=== PATIENT | female | born 2000 | race Caucasian/White ===

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

== ENCOUNTER 2019-04-09 14:25 | Emergency (ER) | payer OTHER ==
[2019-04-09] MEDS ORDERED: Acetaminophen 500 MG TAB ONE (15:35)
[2019-04-09 16:00] LABS: Pregnancy Test - Urine (BHCG) Negative (Negative); Pregu Control Background? CLEAR/WHITE (CLR/WHITE); Pregu Control Bar Appear? YES (CONTROL BAR); Specific Gravity 1.011 (1.002-1.036)
[2019-04-09 16:00] LABS: ALT (SGPT) 12 U/L (8-55); AST (SGOT) 13 U/L (5-34); Albumin 4.5 g/dL (3.5-5.0); Alkaline Phosphatase 69 U/L (40-100); Anion Gap 14 mmol/L (10-20); BUN (Urea Nitrogen) 8 mg/dL (7.0-18.7); Bilirubin, Total 1.7 mg/dL (0.2-1.2); CK (CPK) 82 U/L (29-168); Calc. Creatinine Clearance 0 mL/min (70-130); Calcium 9.9 mg/dL (7.8-10.44); Carbon Dioxide 21 mmol/L (22-29); Chloride 107 mmol/L (98-107); Estimated GFR-MDRD Greater than 90; Globulin 2.5 g/dL (2.4-3.5); Glucose 85 mg/dL (70-105); Potassium 3.9 mmol/L (3.5-5.1); Sodium 138 mmol/L (136-145)
[2019-04-09 16:16] LABS: Amphetamine Not Detected (NotDetected); Barbiturates Screen Not Detected (NotDetected); Benzodiazepine Screen Not Detected (NotDetected); Cocaine Metabolite Screen Not Detected (NotDetected); Medtox Control Line Valid? VALID (VALID); Medtox Reader # READER 4; Methadone Not Detected (NotDetected); Methamphetamine Not Detected (NotDetected); Opiate Screen Not Detected (NotDetected); Oxycodone Screen Not Detected (NotDetected); Phencyclidine (PCP) Not Detected (NotDetected); THC/Cannabinoid Screen Not Detected (NotDetected); Tricyclic Screen Not Detected (NotDetected)
[2019-04-09 17:05] LABS: #Eosinphils 0.1 thou/uL (0.0-0.7); #Lymphocytes 2.3 thou/uL (1.20-3.40); #Monocytes 0.4 thou/uL (0.11-0.59); #Neutrophils 6.5 thou/uL (1.40-6.50); %Basophils 0.3 % (0.0-1.0); %Eosinophils 0.6 % (0.0-10.0); %Lymphocytes 24.3 % (28.0-48.0); %Monocytes 4.6 % (0.0-4.0); %Neutrophils 70.2 % (31.0-61.0); Hemoglobin 12.6 g/dL (12.0-16.0); Mean Corpuscular HGB CONC 33.8 g/dL (32.0-36.0); Mean Corpuscular Hemoglobin 29.8 pg (25.0-35.0); Mean Platelet Volume 7.5 fL (7.4-10.4); Platelet Count 251 thou/uL (130-400); RBC Distribution Width 12.7 % (11.5-14.5); Red Blood Cell (RBC) Count 4.23 mill/uL (4.00-5.20); White Blood Cell (WBC) Count 9.3 thou/uL (4.8-10.8)
--- NOTE | 2019-04-11 14:43 | EKG ---
Test Reason : Blood Pressure : / mmHG Vent. Rate : 093 BPM Atrial Rate : 093 BPM P-R Int : 150 ms QRS Dur : 088 ms QT Int : 344 ms P-R-T Axes : 029 058 053 degrees QTc Int : 427 ms Normal sinus rhythm Septal infarct , age undetermined Abnormal ECG Confirmed by KAYE MCCLIAN DO ([id number]), editor book GARY VALENZUELA ([id number]) on 04/11/2019 2:42:31 PM Referred By: Confirmed By:KAYE MCCLAIN DO
== END 2019-04-09 18:04 | disposition home or self-care (01) ==
LOC: ERS 14:25
DX: R56.9 Unspecified convulsions (principal); F31.9 Bipolar disorder, unspecified; Z79.899 Other long term (current) drug therapy
CPT/HCPCS: 36415; 36416; 80053; 80306; 81025; 82550; 83735; 84146; 85025; 93005; 94760; 96360

== ENCOUNTER 2019-04-17 13:21 | Emergency (ER) | payer OTHER, SELFPAY | END 2019-04-17 14:47 | disposition home or self-care (01) | LOC: ERS 13:21 | DX: F41.9 Anxiety disorder, unspecified (principal); J45.909 Unspecified asthma, uncomplicated; F31.9 Bipolar disorder, unspecified; Z79.899 Other long term (current) drug therapy | CPT/HCPCS: 99284 ==

== ENCOUNTER 2019-05-15 15:14 | Emergency (ER) | payer OTHER, SELFPAY ==
[2019-05-15 15:42] LABS: #Lymphocytes 1.9 thou/uL (1.20-3.40); #Monocytes 0.3 thou/uL (0.11-0.59); #Neutrophils 4.8 thou/uL (1.40-6.50); %Basophils 0.5 % (0.0-1.0); %Eosinophils 0.4 % (0.0-10.0); %Lymphocytes 27.3 % (28.0-48.0); %Monocytes 4.1 % (0.0-4.0); %Neutrophils 67.7 % (31.0-61.0); Hemoglobin 12.7 g/dL (12.0-16.0); Mean Corpuscular Hemoglobin 29.5 pg (25.0-35.0); Mean Corpuscular Volume 89.5 fL (78.0-98.0); Mean Platelet Volume 6.8 fL (7.4-10.4); Platelet Count 344 thou/uL (130-400); RBC Distribution Width 12.7 % (11.5-14.5); White Blood Cell (WBC) Count 7.1 thou/uL (4.8-10.8)
[2019-05-15 16:05] LABS: ALT (SGPT) 16 U/L (8-55); AST (SGOT) 15 U/L (5-34); Albumin 4.6 g/dL (3.5-5.0); Alkaline Phosphatase 67 U/L (40-100); Anion Gap 13 mmol/L (10-20); BUN (Urea Nitrogen) 12 mg/dL (7.0-18.7); Bilirubin, Total 2.1 mg/dL (0.2-1.2); Calc. Creatinine Clearance 0 mL/min (70-130); Calcium 9.8 mg/dL (7.8-10.44); Carbon Dioxide 25 mmol/L (22-29); Chloride 105 mmol/L (98-107); Estimated GFR-MDRD 86; Globulin 2.4 g/dL (2.4-3.5); Glucose 94 mg/dL (70-105); Potassium 3.8 mmol/L (3.5-5.1); Sodium 139 mmol/L (136-145)
[2019-05-15 16:18] LABS: Pregnancy Test - Urine (BHCG) Negative (Negative)
[2019-05-15 16:19] LABS: Pregu Control Background? CLEAR/WHITE (CLR/WHITE); Pregu Control Bar Appear? YES (CONTROL BAR); Specific Gravity 1.021 (1.002-1.036)
[2019-05-15 16:20] LABS: Acetaminophen Less than 6.0 mcg/mL (10.0-30.0); Alcohol Less than 10 mg/dL (Less than 10); Salicylate Less than 8.0 mg/dL (15.0-30.0)
[2019-05-15 16:27] LABS: Amphetamine Not Detected (NotDetected); Barbiturates Screen Detected (NotDetected); Benzodiazepine Screen Not Detected (NotDetected); Cocaine Metabolite Screen Not Detected (NotDetected); Medtox Control Line Valid? VALID (VALID); Medtox Reader # READER 1; Methadone Not Detected (NotDetected); Methamphetamine Not Detected (NotDetected); Opiate Screen Not Detected (NotDetected); Oxycodone Screen Not Detected (NotDetected); Phencyclidine (PCP) Not Detected (NotDetected); THC/Cannabinoid Screen Not Detected (NotDetected); Tricyclic Screen Not Detected (NotDetected)
== END 2019-05-15 18:48 | disposition home or self-care (01) ==
LOC: ERS 15:14
DX: F41.9 Anxiety disorder, unspecified (principal); J45.909 Unspecified asthma, uncomplicated; F31.9 Bipolar disorder, unspecified; Z79.899 Other long term (current) drug therapy
CPT/HCPCS: 36415; 80053; 80306; 80307; 81025; 84443; 85025; 93005

== ENCOUNTER 2019-07-06 16:36 | Emergency (ER) | payer OTHER, SELFPAY ==
[~2019-07-06 16:36] MED LIST changes: +Iopamidol-370 76% 500 ML 1 ML ONE; -Ondansetron PF 4 MG/2 ML Vial ONE; -PHENYLEPHRINE-NS 100 MCG/ML 10 ML SYRINGE ONE
[2019-07-06 17:11] LABS: Base Excess-Venous -0.1 mmol/L (-2.0 to 3.0); Bicarbonate (HCO3v) 25.6 mmol/L (22.0-28.0); CO2 Tension (PvCO2) 44.1 mmHg (40.0-50.0); Calcium, Ionized 1.18 mmol/L (See Comments:); Chloride 106 mmol/L (98-107); Hemoglobin - Calc 14.8 g/dL (12.0-16.0); Potassium 3.8 mmol/L (3.5-5.1); Sodium 141 mmol/L (138-145); T. Carbon Dioxide 26.9 mmol/L (22.0-28.0); vO2 Saturation-calc 67.4 % (60.0-85.0)
[2019-07-06 17:15] LABS: #Basophils 0.1 thou/uL (0.0-0.2); #Eosinphils 0.1 thou/uL (0.0-0.7); #Lymphocytes 2.8 thou/uL (1.20-3.40); #Monocytes 0.5 thou/uL (0.11-0.59); #Neutrophils 8.3 thou/uL (1.40-6.50); %Basophils 0.7 % (0.0-1.0); %Eosinophils 0.5 % (0.0-10.0); %Lymphocytes 24.1 % (28.0-48.0); %Monocytes 4.3 % (0.0-4.0); %Neutrophils 70.3 % (31.0-61.0); Hemoglobin 14.1 g/dL (12.0-16.0); Mean Corpuscular HGB CONC 34.2 g/dL (32.0-36.0); Mean Corpuscular Hemoglobin 30.4 pg (25.0-35.0); Mean Corpuscular Volume 88.8 fL (78.0-98.0); Mean Platelet Volume 7.2 fL (7.4-10.4); Platelet Count 352 thou/uL (130-400); RBC Distribution Width 12.7 % (11.5-14.5); Red Blood Cell (RBC) Count 4.65 mill/uL (4.00-5.20); White Blood Cell (WBC) Count 11.7 thou/uL (4.8-10.8)
[2019-07-06 17:16] LABS: Bacteria/HPF 3+ HPF (None Seen); Bilirubin Negative (Negative); Blood, Urine Negative (Negative); Clarity Turbid (Clear); Glucose, Urine (Dipstick) Normal (Negative); Leukocyte 500 Leu/uL (Negative); Nitrite Negative (Negative); Protein, Urine (Dipstick) Negative (Neg-Trace); RBC/HPF 0-3 HPF (0-3); Renal Epithelial 0-3 HPF (None Seen); Urobilinogen Normal mg/dL (Less than 2)
--- NOTE | 2019-07-06 17:37 | RAD ---
Exam: Chest one view HISTORY:Cough. Dyspnea Comparison: None FINDINGS: Cardiac silhouette: Normal Aorta: Unremarkable Pulmonary vessels: Normal Costophrenic angles: Clear LUNGS: No masses or consolidation. Pneumothorax: None Osseous abnormalities: None IMPRESSION: No acute cardiopulmonary process.
[2019-07-06 17:40] LABS: ALT (SGPT) 11 U/L (8-55); AST (SGOT) 11 U/L (5-34); Albumin 4.4 g/dL (3.5-5.0); Alkaline Phosphatase 74 U/L (40-100); Anion Gap 11 mmol/L (10-20); BUN (Urea Nitrogen) 12 mg/dL (7.0-18.7); Bilirubin, Total 0.7 mg/dL (0.2-1.2); Calc. Creatinine Clearance 0 mL/min (70-130); Calcium 9.5 mg/dL (7.8-10.44); Carbon Dioxide 25 mmol/L (22-29); Chloride 106 mmol/L (98-107); Estimated GFR-MDRD Greater than 90; Globulin 2.6 g/dL (2.4-3.5); Glucose 81 mg/dL (70-105); Potassium 3.8 mmol/L (3.5-5.1); Sodium 138 mmol/L (136-145)
[2019-07-06 17:41] LABS: BHCG - Serum Negative (NEGATIVE); Pregs Control Background? CLEAR/WHITE (CLR/WHITE); Pregs Control Bar Appear? YES (CONTROL BAR)
[2019-07-06] MEDS ORDERED: Ibuprofen 200 MG TAB ONE (18:03)
[2019-07-06] MEDS ORDERED: Acetaminophen 325 MG TAB ONE (18:03)
--- NOTE | 2019-07-06 19:10 | CT ---
CT arteriogram chest with IV contrast and 3-D imaging HISTORY: Chest pain. Dyspnea. FINDINGS: There is good contrast opacification of the pulmonary arteries and thoracic aorta with norm al origin of the great vessels at the aortic arch. Within the posterior segment right upper lobe, a lobular area of soft tissue density with ill-defined margins contains no internal air bronchograms. It measures up to 1.8 cm oblique length on the axial images. No pleural fluid or pneumothorax. IMPRESSION: No CT evidence of pulmonary embolus. Small irregular masslike infiltrate right upper lobe. Clinical correlation regarding other signs and symptoms of right upper lobe pneumonitis is required. Please consider short-term CT follow-up to evaluate for resolution given the somewhat atypical appear ance..
--- NOTE | 2019-07-11 15:44 | EKG ---
Test Reason : Blood Pressure : / mmHG Vent. Rate : 098 BPM Atrial Rate : 098 BPM P-R Int : 140 ms QRS Dur : 086 ms QT Int : 338 ms P-R-T Axes : 028 057 060 degrees QTc Int : 431 ms Normal sinus rhythm with sinus arrhythmia RSR' or QR pattern in V1 suggests right ventricular conduction delay Possible Anteroseptal infarct , age undetermined Abnormal ECG Confirmed by MOISES PANDEY ([id number]), associate editor GARY VALENZUELA ([id number]) on 07/11/2019 3:44:08 PM Referred By: Confirmed By:MOISES Godfrey
== END 2019-07-06 19:31 | disposition home or self-care (01) ==
LOC: ERS 16:36
DX: N39.0 Urinary tract infection, site not specified (principal); R06.02 Shortness of breath; R07.89 Other chest pain; R05 Cough; J45.909 Unspecified asthma, uncomplicated; F31.9 Bipolar disorder, unspecified; Z79.899 Other long term (current) drug therapy
CPT/HCPCS: 36415; 71045; 71275; 80053; 81003; 81015; 82330; 82803; 84703; 85025; 85379; 93005; Q9967

== ENCOUNTER 2020-06-09 16:48 | Emergency (ER) | payer SELFPAY ==
[2020-06-09] MEDS ORDERED: Acetaminophen 500 MG TAB ONE (17:33)
--- NOTE | 2020-06-09 17:44 | RAD ---
Portable frontal chest radiograph: 06/09/2020 COMPARISON: 07/06/2019 HISTORY: Shortness of breath FINDINGS: Lungs are clear. Heart and mediastinal contours appear within normal limits. IMPRESSION: No acute findings.
[2020-06-09 17:54] LABS: #Basophils 0.1 thou/uL (0.0-0.2); #Eosinphils 0.1 thou/uL (0.0-0.7); #Lymphocytes 2.4 thou/uL (1.20-3.40); #Monocytes 0.5 thou/uL (0.11-0.59); #Neutrophils 9.5 thou/uL (1.40-6.50); %Basophils 0.6 % (0.0-1.0); %Eosinophils 0.5 % (0.0-10.0); %Monocytes 4.3 % (0.0-10.0); %Neutrophils 75.6 % (42.0-75.0); Hemoglobin 12.5 g/dL (12.0-16.0); Mean Corpuscular HGB CONC 33.2 g/dL (32.0-36.0); Mean Corpuscular Hemoglobin 29.6 pg (27.0-31.0); RBC Distribution Width 13.4 % (11.5-14.5); Red Blood Cell (RBC) Count 4.22 mill/uL (4.20-5.40); White Blood Cell (WBC) Count 12.5 thou/uL (4.8-10.8)
[2020-06-09] MEDS ORDERED: methylPREDNISolone Sod Succ/PF 125 MG/2 ML VIAL ONE (17:55)
[2020-06-09 17:59] LABS: BHCG - Serum Negative (NEGATIVE); Pregs Control Background? CLEAR/WHITE (CLR/WHITE); Pregs Control Bar Appear? YES (CONTROL BAR)
[2020-06-09 18:10] LABS: Large Platelets SLIGHT; MDiff Complete? YES; Mean Platelet Volume 11.5 fL (7.4-10.4); Platelet Count 85 thou/uL (130-400); Platelet Morphology Comment Appears Decreased; Polychromasia SLIGHT = 2-3 cells (100X) (0-2/hpf)
[2020-06-09 18:21] LABS: ALT (SGPT) 9 U/L (8-55); AST (SGOT) 14 U/L (5-34); Albumin 4.1 g/dL (3.5-5.0); Alkaline Phosphatase 76 U/L (40-110); Anion Gap 14 mmol/L (10-20); BUN (Urea Nitrogen) 9 mg/dL (7.0-18.7); Bilirubin, Total 0.9 mg/dL (0.2-1.2); Calc. Creatinine Clearance 0 mL/min (70-130); Calcium 8.8 mg/dL (7.8-10.44); Carbon Dioxide 25 mmol/L (22-29); Chloride 104 mmol/L (98-107); Globulin 2.7 g/dL (2.4-3.5); Glucose 89 mg/dL (70-105); Potassium 3.6 mmol/L (3.5-5.1); Protein, Total 6.8 g/dL (6.0-8.3); Sodium 139 mmol/L (136-145)
[2020-06-09] MEDS ORDERED: Albuterol 200 PUFF (6.7GM INHALER) INH SCH (18:45)
[2020-06-10 02:06] LABS: SARS-CoV-2 MS2 Positive; SARS-CoV-2 N Gene Negative; SARS-CoV-2 S Gene Negative; SARS-CoV-2 by NAA Not Detected (NotDetected); SARS-CoV-2 orf1ab Negative
== END 2020-06-09 19:45 | disposition home or self-care (01) ==
LOC: ERS 16:48
DX: J45.901 Unspecified asthma with (acute) exacerbation (principal); B34.9 Viral infection, unspecified; Z20.828 Contact with and (suspected) exposure to other viral communicable diseases; Z79.899 Other long term (current) drug therapy
CPT/HCPCS: 71045; 80053; 84484; 84703; 85025; 85379; 87635; 87804; 93005; 96374; J2930; U0003

== ENCOUNTER 2020-08-15 16:40 | Emergency (ER) | payer SELFPAY ==
[2020-08-15] MEDS ORDERED: Ondansetron ODT 4 MG TAB ONE (18:50)
[2020-08-15] MEDS ORDERED: Ketorolac Tromethamine 30 MG/ML VIAL ONE (18:50)
[2020-08-15] MEDS ORDERED: Dexamethasone 10 MG/ML VIAL ONE (19:05)
[2020-08-15 19:09] LABS: Bacteria/HPF 1+ HPF (None Seen); Bilirubin Negative (Negative); Blood, Urine 2+ (Negative); Clarity Clear (Clear); Glucose, Urine (Dipstick) Normal (Negative); Ketone, Urine Negative (Negative); Leukocyte 25 Leu/uL (Negative); Nitrite Negative (Negative); Protein, Urine (Dipstick) Negative (Neg-Trace); Specific Gravity, Urine 1.019 (1.002-1.036); Squamous Epithelial 0-3 HPF (0-3); Urobilinogen Normal mg/dL (Less than 2); WBC/HPF 0-3 HPF (0-3); pH, Urine 5.5 (5.0-9.0)
[2020-08-15 19:09] LABS: #Basophils 0.1 thou/uL (0.0-0.2); #Eosinphils 0.1 thou/uL (0.0-0.7); #Lymphocytes 2.8 thou/uL (1.20-3.40); #Monocytes 0.4 thou/uL (0.11-0.59); #Neutrophils 5.4 thou/uL (1.40-6.50); %Basophils 0.7 % (0.0-1.0); %Eosinophils 0.6 % (0.0-10.0); %Monocytes 4.9 % (0.0-10.0); %Neutrophils 61.7 % (42.0-75.0); Hemoglobin 11.3 g/dL (12.0-16.0); Mean Corpuscular HGB CONC 32.9 g/dL (32.0-36.0); Mean Corpuscular Hemoglobin 27.6 pg (27.0-31.0); Platelet Count 94 thou/uL (130-400); RBC Distribution Width 13.5 % (11.5-14.5); Red Blood Cell (RBC) Count 4.09 mill/uL (4.20-5.40); White Blood Cell (WBC) Count 8.8 thou/uL (4.8-10.8)
[2020-08-15 19:10] LABS: Pregnancy Test - Urine (BHCG) Negative (Negative); Pregu Control Background? CLEAR/WHITE (CLR/WHITE); Pregu Control Bar Appear? YES (CONTROL BAR); Specific Gravity 1.019 (1.002-1.036)
[2020-08-15 19:28] LABS: ALT (SGPT) 8 U/L (8-55); AST (SGOT) 14 U/L (5-34); Albumin 4.2 g/dL (3.5-5.0); Alkaline Phosphatase 60 U/L (40-110); Anion Gap 12 mmol/L (10-20); BUN (Urea Nitrogen) 11 mg/dL (7.0-18.7); Bilirubin, Total 0.9 mg/dL (0.2-1.2); Calc. Creatinine Clearance 0 mL/min (70-130); Calcium 9.1 mg/dL (7.8-10.44); Carbon Dioxide 24 mmol/L (22-29); Chloride 107 mmol/L (98-107); Globulin 2.5 g/dL (2.4-3.5); Glucose 81 mg/dL (70-105); Potassium 3.7 mmol/L (3.5-5.1); Protein, Total 6.7 g/dL (6.0-8.3); Sodium 139 mmol/L (136-145)
--- NOTE | 2020-08-15 20:31 | CT ---
CT OF THE ABDOMEN AND PELVIS WITHOUT IV CONTRAST INDICATION: Right-sided flank pain with lower back and hip pain as well as cloudy urine COMPARISON: None FINDINGS: The lack of IV contrast limits evaluation of the solid organs of the abdomen and pelvis. ABDOMEN: Lung bases: Clear Liver: No focal lesion. Gallbladder: Normal appearing. Pancreas: Normal. Adrenal glands: Normal. Spleen: Normal. Kidneys and ureters: There is a 2 mm calculus within the mid to lower pole of the right kidney. No hy dronephrosis is evident. No left-sided hydronephrosis is demonstrated. Vasculature: Normal. Lymph nodes:No lymphadenopathy. Free fluid in abdomen:No free fluid is evident. PELVIS: Small and large bowel: There is a mild amount retained stool within the colon. Appendix:Normal Bladder: Partially decompressed Rectal and perirectal soft tissues:Normal. Reproductive structures: Normal. Free fluid in pelvis: Mild free fluid Lymphadenopathy pelvis: No lymphadenopathy is evident. Osseous structures: No acute osseous abnormality. No destructive osteolytic or osteoblastic lesion i s identified. Soft tissues:Normal. IMPRESSION: 1. Right nephrolithiasis. No definite ureteral calculus or hydronephrosis is demonstrated. 2. Mild amount of retained stool within the colon. 3. Nonspecific mild free fluid in the pelvis.
== END 2020-08-15 21:00 | disposition home or self-care (01) ==
LOC: ERS 16:40
DX: M54.5 Low back pain (principal); R30.0 Dysuria; K59.00 Constipation, unspecified; R31.9 Hematuria, unspecified; R11.0 Nausea; J45.909 Unspecified asthma, uncomplicated
CPT/HCPCS: 36415; 74176; 80053; 81003; 81015; 81025; 85025; 96372; J1100; J1885; Q0162

== ENCOUNTER 2021-06-05 13:58 | Emergency (ER) | payer SELFPAY ==
[2021-06-05] MEDS ORDERED: Ondansetron PF 4 MG/2 ML Vial ONE (15:05)
== END 2021-06-05 15:03 | disposition home or self-care (01) ==
LOC: ERS 13:58
DX: R11.2 Nausea with vomiting, unspecified (principal); J45.909 Unspecified asthma, uncomplicated; E16.2 Hypoglycemia, unspecified
CPT/HCPCS: 96374; J2405

== ENCOUNTER 2022-02-05 18:59 | Emergency (ER) | payer SELFPAY | END 2022-02-05 19:25 | disposition home or self-care (01) | LOC: ERS 18:59 | DX: R05.9 Cough, unspecified (principal); Z20.822 Contact with and (suspected) exposure to COVID-19 | CPT/HCPCS: 99283; U0003; U0005 ==

== ENCOUNTER 2022-04-20 09:53 | Emergency (ER) | payer SELFPAY ==
[2022-04-20] MEDS ORDERED: Ondansetron ODT 4 MG TAB ONE (11:33)
[2022-04-20] MEDS ORDERED: Acetaminophen 500 MG TAB ONE (11:33)
== END 2022-04-20 13:18 | disposition home or self-care (01) ==
LOC: ERS 09:53
DX: J06.9 Acute upper respiratory infection, unspecified (principal)
CPT/HCPCS: 87081; 87430; 87804; 99284; Q0162

== ENCOUNTER 2023-08-14 21:43 | Emergency (ER) | payer OTHER ==
[2023-08-14] MEDS ORDERED: Ketorolac Tromethamine 30 MG (1 mL) VIAL ONE (22:46)
[2023-08-14] MEDS ORDERED: Lidocaine 4% Patch TD SCH (23:45)
== END 2023-08-15 00:54 | disposition home or self-care (01) ==
LOC: ERS 21:43
DX: S30.0XXA Contusion of lower back and pelvis, initial encounter (principal); W18.30XA Fall on same level, unspecified, initial encounter
CPT/HCPCS: 72072; 72100; 96372; J1885

== ENCOUNTER 2023-11-21 08:31 | Outpatient (CLI) | payer OTHER | END 2023-11-21 08:32 | disposition home or self-care (01) | LOC: BICMRI 08:31 | PROVIDERS: ATTEND Psychiatry & Neurology Neurology | DX: M48.02 Spinal stenosis, cervical region (principal) | CPT/HCPCS: 72156 ==

== ENCOUNTER 2024-04-08 15:53 | Outpatient (CLI) | payer OTHER | END 2024-04-08 15:54 | disposition home or self-care (01) | LOC: SCSRAD 15:53 | PROVIDERS: ATTEND Nurse Practitioner Family | DX: S49.92XA Unspecified injury of left shoulder and upper arm, initial encounter (principal) ==